=== PATIENT | female | born 2005 | race African-American/Black ===

== ENCOUNTER 2025-03-28 23:24 | Emergency (ER) | payer OTHER ==
[~2025-03-28] VITALS: Ht 175.3 cm; Wt 82.6 kg
[2025-03-29 00:03] LABS: APPEARANCE,URINE CLEAR (CLEAR); BLOOD, URINE NEGATIVE Ery/uL (NEGATIVE); LEUKOCYTE ESTERASE ,URINE 3+ (NEGATIVE); NITRITE, URINE NEGATIVE (NEGATIVE); UGLUCOSE NEGATIVE (NEGATIVE)
[2025-03-29 00:31] LABS: ADD URINE CULTURE YES; SQUAMOUS EPITHELIAL CELL,UR Few /HPF (None Seen)
[2025-03-29 01:10] LABS: PREGNANCY TEST URINE QUAL NEGATIVE (NEGATIVE)
[2025-03-29] MEDS ORDERED: METR500T PO (02:00)
[2025-03-29] MEDS ORDERED: NITR100C6 PO (02:08)
[2025-03-29] MEDS: METRONIDAZOLE 500 MG TABLET PO ONE (02:38)
[2025-03-29 03:17] VITALS: BP 128/70; TEMP 98; O2SAT 98
== END 2025-03-29 03:17 | disposition home or self-care (01) ==
LOC: ER 23:28
DX: A59.9 Trichomoniasis, unspecified (principal); B96.89 Other specified bacterial agents as the cause of diseases classified elsewhere; N39.0 Urinary tract infection, site not specified; N76.0 Acute vaginitis; Z11.3 Encounter for screening for infections with a predominantly sexual mode of transmission; Z60.2 Problems related to living alone
CPT/HCPCS: 81001; 84703-TC; 87070-TC; 87081-TC; 87086-TC; 87110-TC; 87210-TC